=== PATIENT | male | born 1985 | race Caucasian/White ===

== ENCOUNTER 2018-12-09 18:37 | Emergency (ER) | payer BC, OTHER ==
[2018-12-09] MEDS ORDERED: Ketorolac 30 MG/ML SDV IVPUSH ONE (18:44)
[2018-12-09] MEDS ORDERED: Ondansetron 4 MG/2 ML SDV IVPUSH ONE (18:44)
[2018-12-09] MEDS ORDERED: Sodium Chloride 0.9% 1,000 ML IV ONE (18:44)
--- NOTE | 2018-12-09 19:25 | EDM.PDOC ---
ED HPI GENERAL MEDICAL PROBLEM - General Chief Complaint: Abdominal Pain Stated Complaint: ABD PAIN Time Seen by Provider: 12/09/18 19:08 - History of Present Illness INITIAL COMMENTS - FREE TEXT/NARRATIVE: HISTORY AND PHYSICAL: History of present illness: Patient is a 33-year-old white male with no significant past medical history presents with concern of abdominal pain he's had this 1 day is been poorly localized described as intermittent and sharp he's had no fever no chills no nausea vomiting and no trauma no other concern. Review of systems: As per history of present illness and below otherwise all systems reviewed and negative. Past medical history: As per history of present illness and as reviewed below otherwise noncontributory. Surgical history: As per history of present illness and as reviewed below otherwise noncontributory. Social history: No reported history of drug or alcohol abuse. Family history: As per history of present illness and as reviewed below otherwise noncontributory. Physical exam: HEENT: Atraumatic, normocephalic, pupils reactive, negative for conjunctival pallor or scleral icterus, mucous membranes moist, throat clear, neck supple, nontender, trachea midline. Lungs: Clear to auscultation, breath sounds equal bilaterally, chest nontender. Heart: S1S2, regular, negative for clicks, rubs, or JVD. Abdomen: Soft, nondistended, no localized tenderness. Negative for masses or hepatosplenomegaly. Negative for costovertebral tenderness. Pelvis: Stable nontender. Genitourinary: Deferred. Rectal: Deferred. Extremities: Atraumatic, negative for cords or calf pain. Neurovascular unremarkable. Neuro: Awake, alert, oriented. Cranial nerves II through XII unremarkable. Cerebellum unremarkable. Motor and sensory unremarkable throughout. Exam nonfocal. Diagnostics: CBC CMP UA Therapeutics: Saline 1 L bolus Impression: #1 abdominal pain Definitive disposition and diagnosis as appropriate pending reevaluation and review of above. RUQ abdomen Pain Score (Numeric/FACES): 2 - Related Data Allergies Allergy/AdvReac Type Severity Reaction Status Date / Time No Known Allergies Allergy Verified 12/09/18 19:31 Home Meds: Home Meds . [No Known Home Meds] 12/09/18 [History] ED ROS GENERAL - Review of Systems Review Of Systems: ROS reveals no pertinent complaints other than HPI. ED EXAM, GENERAL - Physical Exam Exam: See Below (See dictation) Course - Vital Signs Last Recorded V/S: Last Vital Signs Temp 37.0 C 12/09/18 18:55 Pulse 99 12/09/18 18:55 Resp 18 12/09/18 18:55 BP 133/91 H 12/09/18 18:55 Pulse Ox 98 12/09/18 18:55 - Orders/Labs/Meds Labs: Laboratory Tests 12/09/18 12/09/18 12/09/18 Range/Units 19:18 19:18 19:50 WBC 4.41 (4.0-11.0) K/uL RBC 4.64 (4.50-5.90) M/uL Hgb 14.7 (13.0-17.0) g/dL Hct 43.4 (38.0-50.0) % MCV 93.5 (80.0-98.0) fL MCH 31.7 (27.0-32.0) pg MCHC 33.9 (31.0-37.0) g/dL RDW Std Deviation 41.3 (28.0-62.0) fl RDW Coeff of Priyank 12 (11.0-15.0) % Plt Count 143 L (150-400) K/uL MPV 9.00 (7.40-12.00) fL Neut % (Auto) 50.9 (48.0-80.0) % Lymph % (Auto) 32.2 (16.0-40.0) % [place] % (Auto) 11.6 (0.0-15.0) % Eos % (Auto) 4.8 (0.0-7.0) % Baso % (Auto) 0.5 (0.0-1.5) % Neut # (Auto) 2.3 (1.4-5.7) K/uL Lymph # (Auto) 1.4 (0.6-2.4) K/uL [place] # (Auto) 0.5 (0.0-0.8) K/uL Eos # (Auto) 0.2 (0.0-0.7) K/uL Baso # (Auto) 0.0 (0.0-0.1) K/uL Nucleated RBC % 0.0 /100WBC Nucleated RBCs # 0 K/uL Sodium 134 L (136-148) mmol/L Potassium 3.7 (3.5-5.1) mmol/L Chloride 99 (98-107) mmol/L Carbon Dioxide 27.4 (21.0-32.0) mmol/L BUN 13 (7.0-18.0) mg/dL Creatinine 0.7 L (0.8-1.3) mg/dL Est Cr Clr Drug Dosing 147.06 mL/min Estimated GFR (MDRD) > 60.0 ml/min Glucose 97 (74-106) mg/dL Calcium 9.5 (8.5-10.1) mg/dL Total Bilirubin 1.0 (0.2-1.0) mg/dL AST 177 H (15-37) IU/L ALT 236 H (14-63) IU/L Alkaline Phosphatase 49 (46-116) U/L Troponin I < 0.050 (0.000-0.056) ng/mL Total Protein 7.8 (6.4-8.2) g/dL Albumin 4.4 (3.4-5.0) g/dL Globulin 3.4 (2.6-4.0) g/dL Albumin/Globulin Ratio 1.3 (0.9-1.6) Lipase 247 (73-393) U/L Urine Color YELLOW Urine Appearance CLEAR Urine pH 6.5 (5.0-8.0) Ur Specific [place] 1.010 (1.001-1.035) Urine Protein NEGATIVE (NEGATIVE) mg/dL Urine Glucose (UA) NEGATIVE (NEGATIVE) mg/dL Urine Ketones NEGATIVE (NEGATIVE) mg/dL Urine Occult Blood NEGATIVE (NEGATIVE) Urine Nitrite NEGATIVE (NEGATIVE) Urine Bilirubin NEGATIVE (NEGATIVE) Urine Urobilinogen 0.2 (<2.0) EU/dL Ur Leukocyte Esterase NEGATIVE (NEGATIVE) Meds: Medications Discontinued Medications Generic Name Dose Route Start Last Admin Trade Name Freq PRN Reason Stop Dose Admin Sodium Chloride 1,000 mls @ 999 mls/hr 12/09/18 18:44 12/09/18 19:23 Normal Saline IV 12/09/18 19:44 999 mls/hr STAT ONE Administration Ketorolac Tromethamine 30 mg 12/09/18 18:44 Toradol IVPUSH 12/09/18 18:45 ONETIME ONE Ondansetron HCl 8 mg 12/09/18 18:44 Zofran IVPUSH 12/09/18 18:45 ONETIME ONE Departure - Departure Time of Disposition: 20:11 Disposition: Home, Self-Care 01 Condition: Good Clinical Impression: Abdominal pain - Discharge Information Referrals: PCP,None [Primary Care Provider] - Forms: ED Department Discharge Additional Instructions: The following information is given to patients seen in the emergency department who are being discharged to home. This information is to outline your options for follow-up care. We provide all patients seen in our emergency department with a follow-up referral. The need for follow-up, as well as the timing and circumstances, are variable depending upon the specifics of your emergency department visit. If you don't have a primary care physician on staff, we will provide you with a referral. We always advise you to contact your personal physician following an emergency department visit to inform them of the circumstance of the visit and for follow-up with them and/or the need for any referrals to a consulting specialist. The emergency department will also refer you to a specialist when appropriate. This referral assures that you have the opportunity for followup care with a specialist. All of these measure are taken in an effort to provide you with optimal care, which includes your followup. Under all circumstances we always encourage you to contact your private physician who remains a resource for coordinating your care. When calling for followup care, please make the office aware that this follow-up is from your recent emergency room visit. If for any reason you are refused follow-up, please contact the [facility] emergency department at and asked to speak to the emergency department charge nurse. Follow-up primary medical doctor as needed as discussed clear liquids as directed return as needed as discussed
[2018-12-09 20:06] LABS: CHLORIDE,CL 99 mmol/L (98-107); SODIUM,NA 134 mmol/L (136-148)
== END 2018-12-09 20:27 | disposition home or self-care (01) ==
LOC: MW.ED 18:37
DX: R10.9 Unspecified abdominal pain (principal)
CPT/HCPCS: 36415; 80053; 81003; 83690; 84484; 85025; 96360; 99284; J7040; 99283

== ENCOUNTER 2020-05-08 10:28 | Emergency (ER) | payer BC ==
[2020-05-08] MEDS ORDERED: Sodium Chloride 0.9% 2.5 ML Syringe FLUSH PRN (10:31)
[2020-05-08] MEDS ORDERED: Sodium Chloride 0.9% 10 ML Syringe FLUSH PRN (10:31)
[2020-05-08] MEDS ORDERED: diazePAM 5 MG/ML MDV IV ONE (10:41)
[2020-05-08] MEDS ORDERED: Folic Acid 1 MG Tab PO ONE (10:42)
[2020-05-08] MEDS ORDERED: Thiamine 100 MG Tab PO ONE (10:42)
[2020-05-08] MEDS ORDERED: Lactated Ringers 1,000 ML IV ONE ×3 (10:43→14:30)
--- NOTE | 2020-05-08 10:58 | EDM.PDOC ---
ED HPI GENERAL MEDICAL PROBLEM - General Chief Complaint: Drug or Alcohol Abuse Stated Complaint: ALCOHOL WITHDRAWAL Time Seen by Provider: 05/08/20 10:30 Source of Information: Reports: Patient, Old Records History Limitations: Reports: No Limitations - History of Present Illness INITIAL COMMENTS - FREE TEXT/NARRATIVE: This is a 35-year-old male with a past medical history of depression and heavy alcohol use presenting with concerns for alcohol withdrawal. He reports that he drinks about 5-6 whiskey drinks daily. Last drink was about 10:00 last night. He stopped drinking because family members are visiting him. Today he presents to the emergency department concerned that he may be in alcohol withdrawal. He complains of feeling shaky and generally unwell. He denies any fever, chest pain, shortness of breath, or pain anywhere. Denies any hematemesis or bloody stools. He states he has not been in alcohol withdrawal in the past. Denies any history of cirrhosis or liver disease or any illicit drug use besides a remote history of marijuana use. No recent acetaminophen usage. ROS: A 10-point review of systems was negative, except as noted in the HPI (or in the ROS section of this note). Past medical history: Reviewed, no additional pertinent history. Surgical history: Reviewed in system, no additional pertinent history. Social history: Reviewed in system, no additional pertinent history. Family history: Reviewed in system, no additional pertinent history. PHYSICAL EXAM Vital signs reviewed. Nursing notes reviewed. Constitutional: Awake, alert, non-distressed. Thin appearing man. Head: Normocephalic, atraumatic. Eyes: EOMI, conjunctiva normal, no discharge, no scleral icterus. Ears, Nose, Throat: External ears and nose normal, moist oral mucosa. Tongue fasciculations noted. Cardiovascular: Tachycardic, 2+ radial pulse, capillary refill less than 2 seconds. No lower extremity edema. Pulmonary: normal work of breathing, no accessory muscle use. Abdomen/GI: Soft, nontender, nondistended, no guarding or rigidity, no masses. Musculoskeletal: No deformities. Integumentary: Skin and sclera are jaundiced. Appropriate color for ethnicity, warm, dry, no pallor, no rash. Neurologic: Alert, answering questions appropriately, normal speech, no facial droop, moving all extremities well. Psychiatric: Appropriate mood and affect, normal thought process. This patient was seen and evaluated during the 2019 SARS-CoV-2 novel coronavirus pandemic period. Community viral transmission is ongoing at time of this encounter and the emergency department is operating under pandemic response procedures. - Related Data Allergies Allergy/AdvReac Type Severity Reaction Status Date / Time No Known Allergies Allergy Verified 05/08/20 10:43 Home Meds: Home Meds Non-Formulary Medication [NF Drug] 1 each PO DAILY 05/08/20 [History] Past Medical History - Past Health History Medical/Surgical History: Denies Medical/Surgical History HEENT History: Reports: Impaired Vision, Other (See Below) Other HEENT History: wears glasses - Infectious Disease History Infectious Disease History: Reports: None Social & Family History - Family History Family Medical History: No Pertinent Family History - Tobacco Use Tobacco Use Status *Q: Never Tobacco User - Caffeine Use Caffeine Use: Reports: None - Alcohol Use Date of Last Drink: 05/07/20 - Recreational Drug Use Recreational Drug Use: Yes Recreational Drug Type: Reports: Marijuana/Hashish Recreational Drug Use Frequency: Not Used In Over 1 Month ED ROS GENERAL - Review of Systems Review Of Systems: See Below ED EXAM, GENERAL - Physical Exam Exam: See Below ED GENERAL MEDICAL PROCEDURES - Endotracheal Intubation Time of Intubation: 15:00 ET Intubation Indication: Airway Protection Preparation: Suction, Balloon Tested, BVM Set Up, Difficult Airway Equip Pre-Oxygenation: 100% FiO2 Anesthesia Meds: Etomidate Placement: Orotracheal Cords Visualized: Yes, Grade 4 ETT Size In mm: 7.5 Number of Attempts: 1 Confirmed By: CO2 Indicator, Bilateral Breath Sounds, Chest Xray Tube Secured By: By RT #1 Interpretation EKG Interpretation Comments: 12-Lead ECG Interpretation Acquired: 10:57 AM Rhythm: Sinus rhythm Rate: 90 bpm [place]: Normal Intervals: Normal Ectopy: None RV Strain: No obvious RV strain pattern. ST Segments/T-Waves: No notable changes Acute Ischemic Changes: None apparent Interpretation: No STEMI, possible U waves Course - Vital Signs Text/Narrative:: 35-year-old male presenting with concerns for alcohol withdrawal. Differential diagnosis includes but is not limited to: Alcohol withdrawal, electrolyte disturbance, volume depletion, hepatic failure, kidney failure, less likely pancreatitis, less likely sepsis, anemia, thrombocytopenia, and many others. Labs show macrocytic anemia with hemoglobin of 11.4, thrombocytopenia 129. INR and APTT are both elevated. Lactate is 3.4. Troponin is negative. AST 1082, ALT 434, alkaline phosphatase 359, ammonia 145. Metabolic panel shows numerous electrolyte disturbances but I feel that the sample is likely contaminated. The total bilirubin is read as undetectably low which does not fit with the clinical picture as the patient is very jaundiced. Also showed hyponatremia, hypokalemia, severe hypochloremia, and hypoglycemia. We are going to repeat the CMP draw to recheck electrolytes. Negative salicylates, acetaminophen, ethyl alcohol. Resting comfortably after IV diazepam. Fluids are infusing. 12:28 PM: Repeat labs show macrocytic anemia with hemoglobin 10.1, platelet count 112. INR and APTT are both elevated. Metabolic panel shows sodium 126, potassium 3.0, chloride 82, creatinine elevated 1.5, BUN 28, glucose 70, calcium 8.4. Direct bilirubin 22.20, total bilirubin 25.7. ALT 386, alkaline phosphatase 313, ammonia 93. Negative troponin. Albumin low at 2.3. COVID testing negative. Will order IV magnesium sulfate, p.o. potassium, IV dextrose 50%. Patient is going for CT scan of the abdomen/pelvis and will need to be admitted to the hospital. 1:26 PM: Patient was given some p.o. diazepam. I will order some IV lorazepam to help get withdrawal symptoms under control. Pending read of CT scan and ultrasound. Anticipate admission to our hospital. 1:30 PM: CT abdomen/pelvis shows marked diffuse hepatic steatosis and moderate to severe hepatomegaly mild uniform thickening of the gallbladder wall likely due to adjacent liver disease but no pericholecystic fluid and no ascites. No intra or extrahepatic biliary ductal dilation, no pancreatitis. 1:57 PM: Abdominal ultrasound shows hepatomegaly and diffuse hepatic steatosis, mild diffuse gallbladder wall thickening without gallstones or pericholecystic fluid. Likely due to chronic liver disease or a calculus cholecystitis. At the moment I have a low suspicion for cholecystitis given the patient's total lack of any abdominal pain, no fever, no leukocytosis, no nausea or vomiting. 2:15 PM: I reevaluated the patient he has now encephalopathic. His alcohol withdrawal symptoms seem to be getting worse. I ordered an additional 10 mg of IV diazepam. He will need to be admitted to an ICU. I spoke with our hospitalist Dr. Palencia who believes the patient will need to be seen by a nut orchardist or marine pipefitter helper, which we do not have at our hospital. I am placing calls to try and find an ICU bed to transfer him to. I also ordered high-dose thiamine. 2:56 PM: The patient became increasingly altered and was somnolent. I was concerned that he was no longer protecting his airway so we intubated him via rapid sequence induction for airway protection. Please refer to the procedure note. A nasogastric tube was placed along with a Fernandez catheter. The nasogastric tube returned some dark appearing liquid with what appeared to be black particles. I was somewhat concerned for coffee-ground emesis so we will give him 40 mg of pantoprazole IV. We are trying to find an ICU bed to transfer him to. Post intubation chest x-ray shows the ET tube and the NG tube in good position. Post intubation sedation with propofol infusion. 3:55 PM: My read of the head CT shows no intracranial hemorrhage, no mass-effect or shift, normal-appearing parenchyma. Awaiting radiology read. The flight team is here to transfer the patient by air. I spoke with the patient's parents by phone and updated him about his clinical condition. He will be transferred to [facility] in [facility]. He is on a propofol infusion and his vital signs are stabilized. He is ventilating easily. Patient transferred to the air ambulance crew in good condition. Last Recorded V/S: Last Vital Signs Temp 35.8 C L 05/08/20 10:44 Pulse 107 H 05/08/20 13:00 Resp 17 05/08/20 13:00 BP 116/87 05/08/20 13:00 Pulse Ox 98 05/08/20 13:00 - Orders/Labs/Meds Orders: Active Orders 24 hr Category Date Time Status CIWAA Assessment [RC] ASDIRECTED Care 05/08/20 14:11 Active Cardiac Monitoring [RC] . DIRECTED Care 05/08/20 10:43 Active EKG Documentation Completion [RC] STAT Care 05/08/20 10:43 Active Gastrointestinal Tube Mgmt [RC] ASDIRECTED Care 05/08/20 15:02 Active Insert Fernandez Catheter [Insert Urinary Catheter] [OM.PC] Care 05/08/20 15:15 Ordered Q24H Pulse Oximetry [RC] ASDIRECTED Care 05/08/20 10:31 Active RASS Sedation Scale [RC] ASDIRECTED Care 05/08/20 14:33 Active Urinary Catheter Assessment [RC] ASDIRECTED Care 05/08/20 15:15 Active Ventilator Assessment [RT Ventilator, Adult] [RC] Care 05/08/20 16:12 Active ASDIRECTED Head wo Cont [CT] Stat Exams 05/08/20 14:44 Taken CULTURE BLOOD [BC] Stat Lab 05/08/20 12:55 Received CULTURE BLOOD [BC] Stat Lab 05/08/20 13:05 Received Sodium Chloride 0.9% [Saline Flush] Med 05/08/20 10:31 Active 10 ml FLUSH ASDIRECTED PRN Sodium Chloride 0.9% [Saline Flush] Med 05/08/20 10:31 Active 2.5 ml FLUSH ASDIRECTED PRN propofoL [Diprivan 100 ML] 100 ml Med 05/08/20 14:45 Active IV TITRATE Blood Culture x2 Reflex Set [OM.PC] Stat Oth 05/08/20 12:44 Ordered Desired Level of Sedation (RASS) [AST] Click to Edit Oth 05/08/20 14:33 Ordered Saline Lock Insert [OM.PC] Stat Oth 05/08/20 10:31 Ordered Medication Orders Propofol (Diprivan 100 Ml) 100 mls @ 1.497 mls/hr IV TITRATE ADRYAN; Protocol Sodium Chloride (Saline Flush) 10 ml FLUSH ASDIRECTED PRN PRN Reason: Keep Vein Open Last Admin: 05/08/20 10:52 Dose: 10 ml Documented by: ALEAH Sodium Chloride (Saline Flush) 2.5 ml FLUSH ASDIRECTED PRN PRN Reason: Keep Vein Open Last Admin: 05/08/20 10:52 Dose: 2.5 ml Documented by: ALEAH Labs: Laboratory Tests 05/08/20 05/08/20 05/08/20 Range/Units 10:38 10:38 10:38 WBC Cancelled RBC Cancelled Hgb Cancelled Hct Cancelled MCV Cancelled MCH Cancelled MCHC Cancelled RDW Std Deviation Cancelled RDW Coeff of [place] Cancelled Plt Count Cancelled MPV Cancelled Neut % (Auto) Cancelled Lymph % (Auto) Cancelled [place] % (Auto) Cancelled Eos % (Auto) Cancelled Baso % (Auto) Cancelled Neut # (Auto) Cancelled Lymph # (Auto) Cancelled [place] # (Auto) Cancelled Eos # (Auto) Cancelled Baso # (Auto) Cancelled Add Manual Diff Cancelled Nucleated RBC % Cancelled Nucleated RBCs # Cancelled INR Cancelled APTT Lactate Cancelled Sodium Potassium Chloride Carbon Dioxide BUN Creatinine Est Cr Clr Drug Dosing Estimated GFR (MDRD) Glucose Calcium Phosphorus Magnesium Total Bilirubin Direct Bilirubin (0.0-0.5) mg/dL AST ALT Alkaline Phosphatase Ammonia Lactate Dehydrogenase (81-234) U/L Troponin I Total Protein Albumin Globulin Albumin/Globulin Ratio Lipase Urine Color Urine Appearance Urine pH (5.0-8.0) Ur Specific [place] (1.001-1.035) Urine Protein (NEGATIVE) mg/dL Urine Glucose (UA) (NEGATIVE) mg/dL Urine Ketones (NEGATIVE) mg/dL Urine Occult Blood (NEGATIVE) Urine Nitrite (NEGATIVE) Urine Bilirubin (NEGATIVE) Urine Ictotest Urine Urobilinogen (<2.0) EU/dL Ur Leukocyte Esterase (NEGATIVE) Urine RBC (0-2/HPF) Urine WBC (0-5/HPF) Ur Epithelial Cells (NONE-FEW) Urine Bacteria (NEGATIVE) Urinalysis Comment Salicylates Urine Opiates Screen (NEGATIVE) Ur Oxycodone Screen (NEGATIVE) Urine Methadone Screen (NEGATIVE) Acetaminophen Ur Barbiturates Screen (NEGATIVE) Ur Phencyclidine Scrn (NEGATIVE) Ur Amphetamine Screen (NEGATIVE) U Methamphetamines Scrn (NEGATIVE) U Benzodiazepines Scrn (NEGATIVE) U Cocaine Metab Screen (NEGATIVE) U Marijuana (THC) Screen (NEGATIVE) Ethyl Alcohol SARS-CoV-2 RNA (HOSSEIN) (NEGATIVE) 05/08/20 05/08/20 05/08/20 Range/Units 10:38 10:38 10:38 WBC RBC Hgb Hct MCV MCH MCHC RDW Std Deviation RDW Coeff of [place] Plt Count MPV Neut % (Auto) Lymph % (Auto) [place] % (Auto) Eos % (Auto) Baso % (Auto) Neut # (Auto) Lymph # (Auto) [place] # (Auto) Eos # (Auto) Baso # (Auto) Add Manual Diff Nucleated RBC % Nucleated RBCs # INR APTT Cancelled Lactate Sodium Cancelled Potassium Cancelled Chloride Cancelled Carbon Dioxide Cancelled BUN Cancelled Creatinine Cancelled Est Cr Clr Drug Dosing Cancelled Estimated GFR (MDRD) Cancelled Glucose Cancelled Calcium Cancelled Phosphorus Cancelled Magnesium Cancelled Total Bilirubin Cancelled Direct Bilirubin (0.0-0.5) mg/dL AST Cancelled ALT Cancelled Alkaline Phosphatase Cancelled Ammonia Lactate Dehydrogenase (81-234) U/L Troponin I Cancelled Total Protein Cancelled Albumin Cancelled Globulin Cancelled Albumin/Globulin Ratio Cancelled Lipase Cancelled Urine Color Urine Appearance Urine pH (5.0-8.0) Ur Specific [place] (1.001-1.035) Urine Protein (NEGATIVE) mg/dL Urine Glucose (UA) (NEGATIVE) mg/dL Urine Ketones (NEGATIVE) mg/dL Urine Occult Blood (NEGATIVE) Urine Nitrite (NEGATIVE) Urine Bilirubin (NEGATIVE) Urine Ictotest Urine Urobilinogen (<2.0) EU/dL Ur Leukocyte Esterase (NEGATIVE) Urine RBC (0-2/HPF) Urine WBC (0-5/HPF) Ur Epithelial Cells (NONE-FEW) Urine Bacteria (NEGATIVE) Urinalysis Comment Salicylates Urine Opiates Screen (NEGATIVE) Ur Oxycodone Screen (NEGATIVE) Urine Methadone Screen (NEGATIVE) Acetaminophen Ur Barbiturates Screen (NEGATIVE) Ur Phencyclidine Scrn (NEGATIVE) Ur Amphetamine Screen (NEGATIVE) U Methamphetamines Scrn (NEGATIVE) U Benzodiazepines Scrn (NEGATIVE) U Cocaine Metab Screen (NEGATIVE) U Marijuana (THC) Screen (NEGATIVE) Ethyl Alcohol Cancelled SARS-CoV-2 RNA (HOSSEIN) (NEGATIVE) 05/08/20 05/08/20 05/08/20 Range/Units 10:38 10:38 10:38 WBC RBC Hgb Hct MCV MCH MCHC RDW Std Deviation RDW Coeff of [place] Plt Count MPV Neut % (Auto) Lymph % (Auto) [place] % (Auto) Eos % (Auto) Baso % (Auto) Neut # (Auto) Lymph # (Auto) [place] # (Auto) Eos # (Auto) Baso # (Auto) Add Manual Diff Nucleated RBC % Nucleated RBCs # INR APTT Lactate Sodium Potassium Chloride Carbon Dioxide BUN Creatinine Est Cr Clr Drug Dosing Estimated GFR (MDRD) Glucose Calcium Phosphorus Magnesium Total Bilirubin Direct Bilirubin (0.0-0.5) mg/dL AST ALT Alkaline Phosphatase Ammonia Cancelled Lactate Dehydrogenase (81-234) U/L Troponin I Total Protein Albumin Globulin Albumin/Globulin Ratio Lipase Urine Color Urine Appearance Urine pH (5.0-8.0) Ur Specific [place] (1.001-1.035) Urine Protein (NEGATIVE) mg/dL Urine Glucose (UA) (NEGATIVE) mg/dL Urine Ketones (NEGATIVE) mg/dL Urine Occult Blood (NEGATIVE) Urine Nitrite (NEGATIVE) Urine Bilirubin (NEGATIVE) Urine Ictotest Urine Urobilinogen (<2.0) EU/dL Ur Leukocyte Esterase (NEGATIVE) Urine RBC (0-2/HPF) Urine WBC (0-5/HPF) Ur Epithelial Cells (NONE-FEW) Urine Bacteria (NEGATIVE) Urinalysis Comment Salicylates Cancelled Urine Opiates Screen (NEGATIVE) Ur Oxycodone Screen (NEGATIVE) Urine Methadone Screen (NEGATIVE) Acetaminophen Cancelled Ur Barbiturates Screen (NEGATIVE) Ur Phencyclidine Scrn (NEGATIVE) Ur Amphetamine Screen (NEGATIVE) U Methamphetamines Scrn (NEGATIVE) U Benzodiazepines Scrn (NEGATIVE) U Cocaine Metab Screen (NEGATIVE) U Marijuana (THC) Screen (NEGATIVE) Ethyl Alcohol SARS-CoV-2 RNA (HOSSEIN) (NEGATIVE) 05/08/20 05/08/20 05/08/20 Range/Units 11:00 11:38 11:38 WBC 6.30 RBC 3.12 L Hgb 10.1 L Hct 31.0 L MCV 99.4 H MCH 32.4 H MCHC 32.6 RDW Std Deviation 58.4 RDW Coeff of [place] 16 H Plt Count 112 L MPV 10.10 Neut % (Auto) 79.0 Lymph % (Auto) 13.0 L [place] % (Auto) 7.5 Eos % (Auto) 0.5 Baso % (Auto) 0.0 Neut # (Auto) 5.0 Lymph # (Auto) 0.8 [place] # (Auto) 0.5 Eos # (Auto) 0.0 Baso # (Auto) 0.0 Add Manual Diff Nucleated RBC % 0.0 Nucleated RBCs # 0 INR APTT Lactate Sodium 126 L Potassium 3.0 L Chloride 82 L Carbon Dioxide 29.3 BUN 28 H Creatinine 1.5 H Est Cr Clr Drug Dosing 49.43 Estimated GFR (MDRD) 53.9 Glucose 70 L Calcium 8.4 L Phosphorus 3.0 Magnesium 2.1 Total Bilirubin 25.7 H Direct Bilirubin 22.20 H (0.0-0.5) mg/dL AST 1032 H ALT 386 H Alkaline Phosphatase 313 H Ammonia Lactate Dehydrogenase (81-234) U/L Troponin I < 0.050 Total Protein 5.2 L Albumin 2.3 L Globulin 2.9 Albumin/Globulin Ratio 0.8 L Lipase Urine Color Urine Appearance Urine pH (5.0-8.0) Ur Specific [place] (1.001-1.035) Urine Protein (NEGATIVE) mg/dL Urine Glucose (UA) (NEGATIVE) mg/dL Urine Ketones (NEGATIVE) mg/dL Urine Occult Blood (NEGATIVE) Urine Nitrite (NEGATIVE) Urine Bilirubin (NEGATIVE) Urine Ictotest Urine Urobilinogen (<2.0) EU/dL Ur Leukocyte Esterase (NEGATIVE) Urine RBC (0-2/HPF) Urine WBC (0-5/HPF) Ur Epithelial Cells (NONE-FEW) Urine Bacteria (NEGATIVE) Urinalysis Comment Salicylates <0.2 Urine Opiates Screen (NEGATIVE) Ur Oxycodone Screen (NEGATIVE) Urine Methadone Screen (NEGATIVE) Acetaminophen <2.0 Ur Barbiturates Screen (NEGATIVE) Ur Phencyclidine Scrn (NEGATIVE) Ur Amphetamine Screen (NEGATIVE) U Methamphetamines Scrn (NEGATIVE) U Benzodiazepines Scrn (NEGATIVE) U Cocaine Metab Screen (NEGATIVE) U Marijuana (THC) Screen (NEGATIVE) Ethyl Alcohol <3 SARS-CoV-2 RNA (HOSSEIN) NEGATIVE (NEGATIVE) 05/08/20 05/08/20 05/08/20 Range/Units 11:38 11:38 11:38 WBC RBC Hgb Hct MCV MCH MCHC RDW Std Deviation RDW Coeff of [place] Plt Count MPV Neut % (Auto) Lymph % (Auto) [place] % (Auto) Eos % (Auto) Baso % (Auto) Neut # (Auto) Lymph # (Auto) [place] # (Auto) Eos # (Auto) Baso # (Auto) Add Manual Diff Nucleated RBC % Nucleated RBCs # INR 2.97 APTT 43.3 H Lactate 3.1 H* Sodium Potassium Chloride Carbon Dioxide BUN Creatinine Est Cr Clr Drug Dosing Estimated GFR (MDRD) Glucose Calcium Phosphorus Magnesium Total Bilirubin Direct Bilirubin (0.0-0.5) mg/dL AST ALT Alkaline Phosphatase Ammonia 93 H Lactate Dehydrogenase (81-234) U/L Troponin I Total Protein Albumin Globulin Albumin/Globulin Ratio Lipase Urine Color Urine Appearance Urine pH (5.0-8.0) Ur Specific [place] (1.001-1.035) Urine Protein (NEGATIVE) mg/dL Urine Glucose (UA) (NEGATIVE) mg/dL Urine Ketones (NEGATIVE) mg/dL Urine Occult Blood (NEGATIVE) Urine Nitrite (NEGATIVE) Urine Bilirubin (NEGATIVE) Urine Ictotest Urine Urobilinogen (<2.0) EU/dL Ur Leukocyte Esterase (NEGATIVE) Urine RBC (0-2/HPF) Urine WBC (0-5/HPF) Ur Epithelial Cells (NONE-FEW) Urine Bacteria (NEGATIVE) Urinalysis Comment Salicylates Urine Opiates Screen (NEGATIVE) Ur Oxycodone Screen (NEGATIVE) Urine Methadone Screen (NEGATIVE) Acetaminophen Ur Barbiturates Screen (NEGATIVE) Ur Phencyclidine Scrn (NEGATIVE) Ur Amphetamine Screen (NEGATIVE) U Methamphetamines Scrn (NEGATIVE) U Benzodiazepines Scrn (NEGATIVE) U Cocaine Metab Screen (NEGATIVE) U Marijuana (THC) Screen (NEGATIVE) Ethyl Alcohol SARS-CoV-2 RNA (HOSSEIN) (NEGATIVE) 05/08/20 05/08/20 05/08/20 Range/Units 12:35 12:35 12:50 WBC RBC Hgb Hct MCV MCH MCHC RDW Std Deviation RDW Coeff of [place] Plt Count MPV Neut % (Auto) Lymph % (Auto) [place] % (Auto) Eos % (Auto) Baso % (Auto) Neut # (Auto) Lymph # (Auto) [place] # (Auto) Eos # (Auto) Baso # (Auto) Add Manual Diff Nucleated RBC % Nucleated RBCs # INR APTT Lactate Sodium Potassium Chloride Carbon Dioxide BUN Creatinine Est Cr Clr Drug Dosing Estimated GFR (MDRD) Glucose Calcium Phosphorus Magnesium Total Bilirubin Direct Bilirubin (0.0-0.5) mg/dL AST ALT Alkaline Phosphatase Ammonia Lactate Dehydrogenase 941 H (81-234) U/L Troponin I Total Protein Albumin Globulin Albumin/Globulin Ratio Lipase Urine Color ORANGE Urine Appearance CLEAR Urine pH 5.5 (5.0-8.0) Ur Specific [place] 1.020 (1.001-1.035) Urine Protein TRACE H (NEGATIVE) mg/dL Urine Glucose (UA) 100 H (NEGATIVE) mg/dL Urine Ketones 15 H (NEGATIVE) mg/dL Urine Occult Blood SMALL H (NEGATIVE) Urine Nitrite NEGATIVE (NEGATIVE) Urine Bilirubin LARGE H (NEGATIVE) Urine Ictotest POSITIVE Urine Urobilinogen 0.2 (<2.0) EU/dL Ur Leukocyte Esterase NEGATIVE (NEGATIVE) Urine RBC 0-2 (0-2/HPF) Urine WBC 0-3 (0-5/HPF) Ur Epithelial Cells FEW (NONE-FEW) Urine Bacteria FEW (NEGATIVE) Urinalysis Comment Salicylates Urine Opiates Screen NEGATIVE (NEGATIVE) Ur Oxycodone Screen NEGATIVE (NEGATIVE) Urine Methadone Screen NEGATIVE (NEGATIVE) Acetaminophen Ur Barbiturates Screen NEGATIVE (NEGATIVE) Ur Phencyclidine Scrn NEGATIVE (NEGATIVE) Ur Amphetamine Screen NEGATIVE (NEGATIVE) U Methamphetamines Scrn NEGATIVE (NEGATIVE) U Benzodiazepines Scrn NEGATIVE (NEGATIVE) U Cocaine Metab Screen NEGATIVE (NEGATIVE) U Marijuana (THC) Screen POSITIVE (NEGATIVE) Ethyl Alcohol SARS-CoV-2 RNA (HOSSEIN) (NEGATIVE) Meds: Medications Generic Name Dose Route Start Last Admin Trade Name Freq PRN Reason Stop Dose Admin Propofol 100 mls @ 1.497 mls/hr 05/08/20 14:45 Diprivan 100 Ml IV TITRATE ADRYAN Protocol 5 MCG/KG/MIN Sodium Chloride 10 ml 05/08/20 10:31 05/08/20 10:52 Saline Flush FLUSH 10 ml ASDIRECTED PRN Administration Keep Vein Open Sodium Chloride 2.5 ml 05/08/20 10:31 05/08/20 10:52 Saline Flush FLUSH 2.5 ml ASDIRECTED PRN Administration Keep Vein Open Discontinued Medications Generic Name Dose Route Start Last Admin Trade Name Freq PRN Reason Stop Dose Admin Dextrose/Water 25 ml 05/08/20 12:26 05/08/20 12:51 Dextrose 50% In Water IVPUSH 05/08/20 12:27 25 ml ONETIME ONE Administration Diazepam 10 mg 05/08/20 10:41 05/08/20 10:53 Valium IV 05/08/20 10:42 10 mg ONETIME ONE Administration Diazepam 10 mg 05/08/20 13:02 05/08/20 13:08 Valium. PO 05/08/20 13:03 10 mg ONETIME ONE Administration Diazepam 10 mg 05/08/20 14:11 05/08/20 14:20 Valium IVPUSH 05/08/20 14:12 10 mg ONETIME ONE Administration Folic Acid 1 mg 05/08/20 10:42 05/08/20 11:07 Folic Acid PO 05/08/20 10:43 1 mg ONETIME ONE Administration Lactated Ringer's 1,000 mls @ 999 mls/hr 05/08/20 10:43 05/08/20 10:52 Ringers, Lactated IV 05/08/20 11:43 999 mls/hr .BOLUS ONE Administration Lactated Ringer's 1,000 mls @ 999 mls/hr 05/08/20 10:58 05/08/20 11:43 Ringers, Lactated IV 05/08/20 11:58 999 mls/hr .BOLUS ONE Administration Magnesium Sulfate 2 gm/ Premix 50 mls @ 50 mls/hr 05/08/20 12:25 05/08/20 12:47 IV 05/08/20 13:24 50 mls/hr ONETIME ONE Administration Thiamine HCl 400 mg/ Sodium 104 mls @ 208 mls/hr 05/08/20 14:04 05/08/20 14:24 Chloride IV 05/08/20 14:05 208 mls/hr ONETIME ONE Administration Norepinephrine Bitartrate Confirm 05/08/20 14:28 05/08/20 16:02 Norepinephr-0.9% Nacl 4 Mg/250 Administered 05/08/20 14:29 Not Given Dose 4 mg in 250 mls @ as directed IV .STK-MED ONE Propofol Confirm 05/08/20 14:39 05/08/20 16:03 Diprivan 50 Ml Administered 05/08/20 14:40 5 mls/hr Dose Administration 50 mls @ as directed .ROUTE .STK-MED ONE Pantoprazole Sodium 40 mg/ 20 mls @ 420 mls/hr 05/08/20 14:57 05/08/20 16:02 Sodium Chloride IVPUSH 05/08/20 14:59 420 mls/hr ONETIME ONE Administration Iopamidol 61 ml 05/08/20 12:35 05/08/20 12:36 Isovue Multipack-370 (76%) IVPUSH 05/08/20 12:36 61 ml ONETIME ONE Administration Lorazepam 2 mg 05/08/20 13:26 05/08/20 13:31 Ativan IVPUSH 05/08/20 13:27 2 mg ONETIME ONE Administration Pantoprazole Sodium Confirm 05/08/20 14:54 05/08/20 16:03 Protonix Iv Administered 05/08/20 14:55 Not Given Dose 40 mg .ROUTE .STK-MED ONE Potassium Chloride 60 meq 05/08/20 12:25 05/08/20 12:48 Potassium Chloride PO 05/08/20 12:26 60 meq ONETIME ONE Administration Propofol Confirm 05/08/20 14:37 05/08/20 16:04 Diprivan 20 Ml Administered 05/08/20 14:38 Not Given Dose 200 mg .ROUTE .STK-MED ONE Thiamine HCl 100 mg 05/08/20 10:42 05/08/20 11:08 Vitamin B-1 PO 05/08/20 10:43 100 mg ONETIME ONE Administration Departure - Departure Time of Disposition: 14:14 Disposition: DC/Tfer to Acute Hospital 02 Condition: Fair Clinical Impression: Alcohol withdrawal delirium, Hypokalemia - Discharge Information Referrals: PCP,Not In Area [Primary Care Provider] - Forms: ED Department Discharge Critical Care Note - Critical Care Note Total Time (mins): 60 Comments: Critical care time is exclusive of billable procedures and the time to perform these procedures. Critical care time was used to prevent vital system organ failure and deterioration. Critical care time includes bedside management and high-complexity decision making requiring my highest level of mental preparedness and attention. This includes reviewing the patient's chart and prior medical records, ordering and reviewing interpreting laboratory studies and imaging results, interpretation of vital signs and EKG, pulse oximetry, and discussion with the admitting team or accepting facility, discussions with EMS and nursing staff, and discussions with any family members if available. Alcohol withdrawal delirium and multiple severe electrolyte derangements. Worsening mental status requiring endotracheal intubation for airway protection. Transferred by air ambulance to intensive care unit. Sepsis Event Note (ED) - Evaluation Sepsis Screening Result: No Definite Risk - Focused Exam Vital Signs: Vital Signs Temp Pulse Resp BP Pulse Ox 05/08/20 13:00 107 H 17 116/87 98 05/08/20 12:00 75 17 112/83 100 05/08/20 11:30 80 17 111/76 97 05/08/20 10:44 35.8 C L 120 H 20 106/71 99 - My Orders Last 24 Hours: My Active Orders 05/08/20 10:31 Pulse Oximetry [RC] ASDIRECTED Sodium Chloride 0.9% [Saline Flush] 10 ml FLUSH ASDIRECTED PRN Sodium Chloride 0.9% [Saline Flush] 2.5 ml FLUSH ASDIRECTED PRN Saline Lock Insert [OM.PC] Stat 05/08/20 10:43 Cardiac Monitoring [RC] . DIRECTED EKG Documentation Completion [RC] STAT 05/08/20 12:44 Blood Culture x2 Reflex Set [OM.PC] Stat 05/08/20 12:55 CULTURE BLOOD [BC] Stat 05/08/20 13:05 CULTURE BLOOD [BC] Stat 05/08/20 14:11 CIWAA Assessment [RC] ASDIRECTED 05/08/20 14:44 Head wo Cont [CT] Stat 05/08/20 15:02 Gastrointestinal Tube Mgmt [RC] ASDIRECTED 05/08/20 15:15 Insert Fernandez Catheter [Insert Urinary Catheter] [OM.PC] Q24H Urinary Catheter Assessment [RC] ASDIRECTED 05/08/20 16:12 Ventilator Assessment [RT Ventilator, Adult] [RC] ASDIRECTED - Assessment/Plan Last 24 Hours: My Active Orders 05/08/20 10:31 Pulse Oximetry [RC] ASDIRECTED Sodium Chloride 0.9% [Saline Flush] 10 ml FLUSH ASDIRECTED PRN Sodium Chloride 0.9% [Saline Flush] 2.5 ml FLUSH ASDIRECTED PRN Saline Lock Insert [OM.PC] Stat 05/08/20 10:43 Cardiac Monitoring [RC] . DIRECTED EKG Documentation Completion [RC] STAT 05/08/20 12:44 Blood Culture x2 Reflex Set [OM.PC] Stat 05/08/20 12:55 CULTURE BLOOD [BC] Stat 05/08/20 13:05 CULTURE BLOOD [BC] Stat 05/08/20 14:11 CIWAA Assessment [RC] ASDIRECTED 05/08/20 14:44 Head wo Cont [CT] Stat 05/08/20 15:02 Gastrointestinal Tube Mgmt [RC] ASDIRECTED 05/08/20 15:15 Insert Fernandez Catheter [Insert Urinary Catheter] [OM.PC] Q24H Urinary Catheter Assessment [RC] ASDIRECTED 05/08/20 16:12 Ventilator Assessment [RT Ventilator, Adult] [RC] ASDIRECTED
[2020-05-08] MEDS ORDERED: Etomidate 2 MG/ML 20 ML SDV IVPUSH ONE ×2 (12:00→14:30)
[2020-05-08] MEDS ORDERED: Rocuronium 100 MG/10 ML MDV ONE (12:00)
[2020-05-08 12:15] LABS: BLOOD UREA NITROGEN,BUN 28 mg/dL (7.0-18.0); CARBON DIOXIDE,CO2 29.3 mmol/L (21.0-32.0); CHLORIDE,CL 82 mmol/L (98-107); GLUCOSE RANDOM 70 mg/dL (74-106); SODIUM,NA 126 mmol/L (136-148)
[2020-05-08] MEDS ORDERED: Potassium Chloride 10% 20 MEQ/15 ML Soln 30 ML UD Cup PO ONE (12:25)
[2020-05-08] MEDS ORDERED: Magnesium Sulfate/Water 2 GM in Premix Bag 1 BAG IV ONE (12:25)
[2020-05-08] MEDS ORDERED: 50% Dextrose in Water 50 ML Syringe IVPUSH ONE (12:26)
[2020-05-08] MEDS ORDERED: Iopamidol 755 MG/ML 500 ML Multipack Bottle IVPUSH ONE (12:35)
[2020-05-08] MEDS ORDERED: Diazepam 5 MG Tab PO ONE (13:02)
[2020-05-08 13:08] LABS: ACETAMINOPHEN <2.0 ug/mL
[2020-05-08] MEDS ORDERED: LORazepam 2 MG/ML SDV IVPUSH ONE (13:26)
--- NOTE | 2020-05-08 13:29 | CT ---
Indication: New onset of jaundice. Comparison: None available. Technique: Multiple contiguous images were obtained from the lower chest to the pubic symphysis following the uncomplicated administration of Findings: Marked diffuse hepatic steatosis and moderate to severe hepatomegaly. No splenomegaly. The kidneys enhance symmetrically. The portal and hepatic veins are patent. The IVC is patent. Mild uniform thickening of the gallbladder wall likely due to the adjacent disease. No pericholecystic fluid. No ascites. The urinary bladder is unremarkable in appearance. No bowel obstruction. Adrenal glands are unremarkable. No free intraperitoneal air. No intra or extrahepatic biliary ductal dilatation. No pancreatitis by CT imaging. Splenic mesenteric veins are patent. No aggressive appearing osseous lesion. Impression: Diffuse severe hepatic steatosis, and hepatomegaly. Please note that all CT scans at this facility use dose modulation, iterative reconstruction, and/or weight-based dosing when appropriate to reduce radiation dose to as low as reasonably achievable. Dictated by Christopher Figueroa MD @ May 08 2020 1:18PM (Electronically Signed)
--- NOTE | 2020-05-08 13:54 | US ---
INDICATION: new onset jaundice,RUQ ULTRASOUND COMPARISON: CT May 08, 2020 TECHNIQUE: Real time raines scale imaging and color Doppler analysis was performed of the right upper quadrant. FINDINGS: The patient`s liver is enlarged and has diffuse increased echogenicity. There is a normal appearance of the hepatic IVC and proximal abdominal aorta. There is no evidence of ascites. The gallbladder is of normal size and there is no evidence of intraluminal stones or sludge. The gallbladder wall measures 5 mm in thickness. The common bile duct is of normal size and measures 4 mm in diameter at the level of the schuyler hepatis. The visualized pancreas appears normal. There is no evidence of a stone or hydronephrosis within the right kidney. The right kidney measures 11.5 cm in length. IMPRESSION: Hepatomegaly and diffuse hepatic steatosis. Mild diffuse gallbladder wall thickening measuring up to 5 millimeters. No gallstones. No biliary obstruction. This may be secondary to chronic liver disease or acalculous cholecystitis in the appropriate setting. HIDA scan may be helpful. Dictated by Adam Ovalles MD @ May 08 2020 1:48PM Signed by Dr. Adam Ovalles @ May 08 2020 1:53PM
[2020-05-08] MEDS ORDERED: Rocuronium 50 MG/5 ML Vial IVPUSH ONE (14:30)
[2020-05-08] MEDS ORDERED: Propofol 200 MG/20 ML SDV ONE (14:37)
[2020-05-08] MEDS ORDERED: propofoL 50 ML ONE (14:39)
[2020-05-08] MEDS ORDERED: propofoL 100 ML IV SCH (14:45)
[2020-05-08] MEDS ORDERED: Pantoprazole 40 MG Vial ONE (14:54)
[2020-05-08] MEDS ORDERED: Pantoprazole 40 MG in Sodium Chloride 0.9% 20 ML IVPUSH ONE (14:57)
--- NOTE | 2020-05-08 15:47 | CR ---
INDICATION: Post intubation TECHNIQUE: Chest 1 view COMPARISON: None FINDINGS: Cardiovascular and mediastinum: Heart size and vasculature are normal in caliber and appearance. Lungs and pleural spaces: Lungs are clear. No sign of infiltrate or mass. No sign of pleural effusion. No pneumothorax. Bones and soft tissues: Endotracheal tube is 2 centimeters above kita. Enteric tube is located in the distal stomach. IMPRESSION: Endotracheal tube tip located 2 centimeters above the kita. Lungs clear. Dictated by Adam Ovalles MD @ May 08 2020 3:44PM Signed by Dr. Adam Ovalles @ May 08 2020 3:46PM
--- NOTE | 2020-05-08 16:22 | CT ---
Indication: Pt w/AMS. Pt is intubated and was bagged during exam. Nurse in charge of pt care sts pt started replying back to questions with numbers. Technique: CT of the head without contrast. Coronal and sagittal reformats. Bone and soft tissue windows. Comparison: No prior studies available for comparison at this institution. Findings: No acute intracranial hemorrhage or extra-axial collection. No evidence of acute cortical infarction. No mass effect or midline shift. Normal cerebral volume. The ventricles are normal in size, shape and contour. There is normal willoughby and white matter differentiation. The orbital contents are normal. No calvarial fractures. No lytic or sclerotic osseous lesions within the calvarium or skull base. Scalp and other imaged soft tissue structures are normal. Mastoid air cells are clear. Paranasal sinuses are well aerated. Significant fluid in the nasopharynx likely secondary to intubation status Impression: 1. No acute intracranial abnormality. 2. Significant fluid in the nasopharynx likely secondary to intubation status. Please note that all CT scans at this facility use dose modulation, iterative reconstruction, and/or weight-based dosing when appropriate to reduce radiation dose to as low as reasonably achievable. Dictated by Adam Ratliff MD @ May 08 2020 4:17PM Signed by Dr. Adam Ratliff @ May 08 2020 4:21PM
== END 2020-05-08 16:06 ==
LOC: MW.ED 10:28
DX: F10.231 Alcohol dependence with withdrawal delirium (principal); E87.6 Hypokalemia; Z20.828 Contact with and (suspected) exposure to other viral communicable diseases
CPT/HCPCS: 31500; 36415; 43752; 51702; 70450; 71045; 74177; 76705; 80053; 80305; 80307; 81001; 82140; 82248; 83605; 83615; 83735; 84100; 84484; 85025; 85610; 85730; 87040; 87635; 93005; 94002; 96361; 96365; 96367; 96375; 96376; 99285; A9270; C9113; J2060; J2704; J3360; J3411; J3475; J3490; J7120; Q9967; 93010; 99291; U0002